=== PATIENT | male | born 1970 | race Caucasian/White ===

== ENCOUNTER 2021-11-27 10:21 | Emergency (ER) | payer OTHER ==
[~2021-11-27] VITALS: Ht 170.2 cm; Wt 70.0 kg
[2021-11-27] MEDS ORDERED: ZOFRAN4 M1 PO ×2 (11:12→12:01)
[2021-11-27 11:34] VITALS: BP 142/102
== END 2021-11-27 11:34 | disposition home or self-care (01) | DRG 179 ==
LOC: ED 10:21
DX: U07.1 COVID-19 (principal)